=== PATIENT | female | born 1980 | race African-American/Black ===

== ENCOUNTER 2017-07-21 16:35 | Emergency (ER) | payer MEDICAID ==
[~2017-07-21] VITALS: Ht 175.3 cm; Wt 163.0 kg
[2017-07-21 21:30] VITALS: BP 121/65
[2017-07-21] MEDS ORDERED: CLONIDINE 0.1MG TABLET PO ONE (21:45)
[2017-07-21 21:51] LABS: BASOPHILS % 1.5 % (0.0-2.0); EOSINOPHILS % 0.6 % (0.0-5.0); HEMATOCRIT. 37.1 % (36.0-48.0); LYMPHOCYTES % 40.8 % (20.0-50.0); MEAN CORPUSCULAR HEMOGLOBIN 28.6 pg (28.0-32.0); MEAN CORPUSCULAR VOLUME 88.6 fL (81.0-99.0); NEUTROPHILS % 46.1 % (40.0-76.0); PLATELET 321 x1000/uL (130-400); RED BLOOD CELL COUNT 4.19 mill/uL (4.2-5.4); RED CELL DISTRIBUTION WIDTH 13.7 % (11.6-14.6)
[2017-07-21 21:58] LABS: CHLORIDE 107 mEq/L (98-107)
[2017-07-21] MEDS ORDERED: ACETAMINOPHEN 325MG TABLET PO ONE (22:00)
[2017-07-21 22:11] LABS: HCG SCREEN NEGATIVE
[2017-07-21 22:13] LABS: CARBON DIOXIDE 27 mEq/L (21-32)
[2017-07-21 23:17] LABS: CLARITY URINE CLOUDY (CLEAR); COLOR URINE YELLOW (YELLOW); GLUCOSE URINE NEGATIVE (NEGATIVE); KETONES URINE NEGATIVE (NEGATIVE); LEUKOCYTE ESTERASE URINE 2+ (NEGATIVE); NITRITE URINE NEGATIVE (NEGATIVE); OCCULT BLOOD URINE TRACE (NEGATIVE); PH URINE 5.5 (4.5-8.0); PROTEIN URINE NEGATIVE (NEGATIVE); SPECIFIC GRAVITY URINE 1.028 (1.005-1.030)
== END 2017-07-22 00:30 | disposition home or self-care (01) ==
LOC: ER 21:49
DX: N39.0 Urinary tract infection, site not specified (principal); I10 Essential (primary) hypertension; R51 Headache; R42 Dizziness and giddiness; H53.2 Diplopia; Z96.659 Presence of unspecified artificial knee joint
CPT/HCPCS: 36415; 70450; 71010; 80053; 81001; 83690; 84443; 84703; 85025; 93005; 99285; Z7610

== ENCOUNTER 2018-02-18 16:10 | Emergency (ER) | payer MEDICAID ==
[~2018-02-18] VITALS: Ht 175.3 cm; Wt 159.0 kg
[2018-02-18] MEDS ORDERED: KETOROLAC 60MG/2ML VIAL IM ONE (20:30)
[2018-02-18 21:45] VITALS: BP 126/64
== END 2018-02-18 21:58 | disposition home or self-care (01) ==
LOC: ER 16:42
DX: M54.2 Cervicalgia (principal); M54.5 Low back pain; M25.561 Pain in right knee; V43.52XA Car driver injured in collision with other type car in traffic accident, initial encounter; Y93.89 Activity, other specified; Y92.89 Other specified places as the place of occurrence of the external cause; Y99.8 Other external cause status
CPT/HCPCS: 73562; 81025; 96372; 99284; J1885

== ENCOUNTER 2020-05-19 20:07 | Emergency (ER) | payer MEDICAID ==
[~2020-05-19] VITALS: Ht 175.3 cm; Wt 137.0 kg
[2020-05-19 21:12] LABS: BASOPHILS % 0.3 % (0.0-2.0); EOSINOPHILS % 0.3 % (0.0-5.0); HEMATOCRIT. 36.2 % (36.0-48.0); HEMOGLOBIN. 12.2 g/dL (12.0-16.0); LYMPHOCYTES % 48.3 % (20.0-50.0); MEAN CORPUSCULAR HEMOGLOBIN 29.8 pg (28.0-32.0); MEAN CORPUSCULAR VOLUME 88.8 fL (81.0-99.0); MEAN PLATELET VOLUME 7.1 fl (7.4-10.4); MONOCYTES % 11.9 % (2.0-8.0); NEUTROPHILS % 39.2 % (40.0-76.0); PLATELET 291 x1000/uL (130-400); RED BLOOD CELL COUNT 4.08 mill/uL (4.2-5.4); RED CELL DISTRIBUTION WIDTH 14.4 % (11.6-14.6)
[2020-05-19 21:16] LABS: CHLORIDE 108 mEq/L (98-107)
[2020-05-19 21:23] LABS: HCG SCREEN NEGATIVE
[2020-05-19 22:00] VITALS: BP 139/84
== END 2020-05-19 22:08 | disposition home or self-care (01) ==
LOC: ER 20:12
DX: R05 Cough (principal); Z98.84 Bariatric surgery status
CPT/HCPCS: 36415; 71045; 80053; 83880; 84484; 84703; 85025; 93005; 99285

== ENCOUNTER 2022-01-23 12:19 | Emergency (ER) | payer MEDICAID ==
[~2022-01-23] VITALS: Ht 175.3 cm; Wt 110.0 kg
[2022-01-23] MEDS ORDERED: DICL50TA9 MT (17:00)
[2022-01-23] MEDS ORDERED: HYDROCODONE/ACETAMINOPHEN 10/325MG TABLET PO ONE (17:00)
[2022-01-23 17:24] VITALS: BP 130/100
== END 2022-01-23 17:27 | disposition home or self-care (01) ==
LOC: ER 13:57
DX: M25.562 Pain in left knee (principal); G89.29 Other chronic pain; M17.12 Unilateral primary osteoarthritis, left knee; Z96.651 Presence of right artificial knee joint; Z98.84 Bariatric surgery status; W01.0XXA Fall on same level from slipping, tripping and stumbling without subsequent striking against object, initial encounter; Y93.89 Activity, other specified; Y92.012 Bathroom of single-family (private) house as the place of occurrence of the external cause
CPT/HCPCS: 73562; 93005; 99283

== ENCOUNTER 2022-02-24 10:48 | Emergency (ER) | payer MEDICAID ==
[~2022-02-24] VITALS: Ht 175.3 cm; Wt 104.0 kg
[~2022-02-24 10:48] MED LIST: DICL50TA9 MT
[2022-02-24 11:02] VITALS: BP 127/77
[2022-02-24] MEDS ORDERED: ACETAMINOPHEN 325MG TABLET PO STA (11:08)
[2022-02-24] MEDS ORDERED: ACET-2708 PO (12:13)
== END 2022-02-24 12:33 | disposition home or self-care (01) ==
LOC: ER 10:48
DX: R07.81 Pleurodynia (principal); M19.90 Unspecified osteoarthritis, unspecified site; Z98.84 Bariatric surgery status; Z96.659 Presence of unspecified artificial knee joint
CPT/HCPCS: 71045; 99283

== ENCOUNTER 2022-03-19 11:08 | Emergency (ER) | payer MEDICAID ==
[~2022-03-19] VITALS: Ht 175.3 cm; Wt 107.0 kg
[~2022-03-19 11:08] MED LIST changes: +ACET-2708 PO
[2022-03-19 11:16] VITALS: BP 119/64
[2022-03-19 12:47] LABS: BASOPHILS % 0.7 % (0.0-2.0); EOSINOPHILS % 0.3 % (0.0-5.0); HEMATOCRIT. 27.1 % (36.0-48.0); HEMOGLOBIN. 8.5 g/dL (12.0-16.0); LYMPHOCYTES % 37.3 % (20.0-50.0); MEAN CORPUSCULAR HEMOGLOBIN 21.5 pg (28.0-32.0); MEAN CORPUSCULAR VOLUME 68.6 fL (81.0-99.0); MEAN PLATELET VOLUME 6.3 fl (7.4-10.4); MONOCYTES % 10.2 % (2.0-8.0); NEUTROPHILS % 51.5 % (40.0-76.0); PLATELET 448 x1000/uL (130-400); RED BLOOD CELL COUNT 3.95 mill/uL (4.2-5.4)
[2022-03-19 12:50] LABS: CLARITY URINE CLOUDY (CLEAR); COLOR URINE YELLOW (YELLOW); KETONES URINE TRACE (NEGATIVE); LEUKOCYTE ESTERASE URINE 1+ (NEGATIVE); NITRITE URINE NEGATIVE (NEGATIVE); OCCULT BLOOD URINE NEGATIVE (NEGATIVE); PROTEIN URINE NEGATIVE (NEGATIVE); SPECIFIC GRAVITY URINE 1.027 (1.005-1.030)
[2022-03-19 12:54] LABS: CHLORIDE 111 mEq/L (98-107)
[2022-03-19 14:25] LABS: PLATELET ESTIMATE SLIGHTLY INCREASED
[2022-03-19] MEDS ORDERED: FERR325T6 MT (14:38)
[2022-03-19] MEDS ORDERED: NITR-87 MT (14:38)
[2022-03-19] MEDS ORDERED: METR-167 MT (14:38)
== END 2022-03-19 15:02 | disposition home or self-care (01) ==
LOC: ER 11:08
DX: D64.9 Anemia, unspecified (principal); N39.0 Urinary tract infection, site not specified; A59.01 Trichomonal vulvovaginitis
CPT/HCPCS: 36415; 71045; 80053; 81003; 82962; 85025; 93005; 99285

== ENCOUNTER 2022-09-24 16:08 | Emergency (ER) | payer MEDICAID, OTHER ==
[~2022-09-24] VITALS: Ht 175.3 cm; Wt 105.0 kg
[~2022-09-24 16:08] MED LIST changes: +FERR325T6 MT; +METR-167 MT; +NITR-87 MT
[2022-09-24] MEDS ORDERED: KETOROLAC 60MG/2ML VIAL IM ONE (19:00)
[2022-09-24] MEDS ORDERED: HYDROCODONE/ACETAMINOPHEN 5/325MG TABLET PO ONE (19:00)
[2022-09-24] MEDS ORDERED: LIDOCAINE 5% PATCH TOP SCH (19:00)
[2022-09-24 20:30] VITALS: BP 125/78
== END 2022-09-24 20:32 | disposition home or self-care (01) ==
LOC: ER 16:08
DX: M17.12 Unilateral primary osteoarthritis, left knee (principal); M25.562 Pain in left knee; M25.462 Effusion, left knee; Z87.891 Personal history of nicotine dependence; Z79.899 Other long term (current) drug therapy
CPT/HCPCS: 73562; 96372; 99283; J1885

== ENCOUNTER 2024-03-03 06:55 | Emergency (ER) | payer OTHER ==
[~2024-03-03] VITALS: Ht 175.3 cm; Wt 113.5 kg
[2024-03-03 07:03] VITALS: BP 127/76; PULSE 88; RESP 17; TEMP 97.6; O2SAT 100
[2024-03-03] MEDS: TETRACAINE 0.5% OPHTH DROPS 4ML BOTHEYE ONE (08:15)
[2024-03-03] MEDS: FLUORESCEIN SODIUM 1MG/STRIP BOTHEYE ONE (08:15)
[2024-03-03] MEDS ORDERED: SULF15DR26 EACHEYE (09:28)
== END 2024-03-03 10:06 | disposition home or self-care (01) ==
LOC: ER 06:55
DX: H10.33 Unspecified acute conjunctivitis, bilateral (principal); Z98.890 Other specified postprocedural states; Z41.1 Encounter for cosmetic surgery
CPT/HCPCS: 99283